=== PATIENT | female | born 1950 | race Caucasian/White ===

== ENCOUNTER → 2018-07-16 | Outpatient (CLI) | payer MEDICARE | END | disposition home or self-care (01) | LOC: CFH 09:02 | PROVIDERS: ATTEND Internal Medicine | DX: Z12.31 Encounter for screening mammogram for malignant neoplasm of breast (principal); M85.88 Other specified disorders of bone density and structure, other site | CPT/HCPCS: 77063; 77080; 77067 ==

== ENCOUNTER 2018-08-30 13:17 | Outpatient (CLI) | payer MEDICARE ==
[~2018-08-30 13:17] MED LIST: GADOBUTROL 10 MMOL/10 ML PFS ONE
== END 2018-08-30 23:59 | disposition home or self-care (01) ==
LOC: CFH 13:17
PROVIDERS: ATTEND Neurological Surgery
DX: D43.2 Neoplasm of uncertain behavior of brain, unspecified (principal); R22.0 Localized swelling, mass and lump, head
CPT/HCPCS: 70553; A9585

== ENCOUNTER 2020-11-16 10:38 | Outpatient (CLI) | payer MEDICARE | END 2020-11-16 23:59 | disposition home or self-care (01) | LOC: CFH 10:38 | PROVIDERS: ATTEND Internal Medicine | DX: Z12.31 Encounter for screening mammogram for malignant neoplasm of breast (principal) | CPT/HCPCS: 77063; 77067 ==